=== PATIENT | female | born 2000 | race Caucasian/White ===

== ENCOUNTER 2023-05-07 19:05 | Emergency (ER) | payer OTHER ==
[~2023-05-07] VITALS: Ht 165.1 cm; Wt 86.4 kg
[2023-05-07 21:00] VITALS: TEMP 98.3
[2023-05-07] MEDS ORDERED: ACETAMINOPHEN 500 MG TABLET PO ONE (21:15)
[2023-05-07] MEDS ORDERED: IBUPROFEN 600 MG TABLET PO ONE (21:15)
[2023-05-07] MEDS ORDERED: IBUP-1554 PO (22:13)
[2023-05-07 22:30] VITALS: BP 129/74; PULSE 69; RESP 16
== END 2023-05-07 22:35 | disposition home or self-care (01) ==
LOC: EMS 19:07
DX: S13.4XXA Sprain of ligaments of cervical spine, initial encounter (principal); J45.909 Unspecified asthma, uncomplicated; Z88.8 Allergy status to other drugs, medicaments and biological substances; V49.9XXA Car occupant (driver) (passenger) injured in unspecified traffic accident, initial encounter; Y93.89 Activity, other specified; Y92.89 Other specified places as the place of occurrence of the external cause; Y99.8 Other external cause status
CPT/HCPCS: 72040; 99283